=== PATIENT | female | born 1995 | race Hispanic/Latino ===

== ENCOUNTER 2017-03-31 08:18 | Emergency (ER) | payer OTHER ==
[2017-03-31 08:46] LABS: #Basophils 0.1 thou/uL (0.0-0.2); #Eosinphils 0.1 thou/uL (0.0-0.7); #Lymphocytes 3.8 thou/uL (1.20-3.40); #Monocytes 0.5 thou/uL (0.11-0.59); #Neutrophils 3.8 thou/uL (1.40-6.50); %Basophils 0.6 % (0.0-1.0); %Eosinophils 1.4 % (0.0-10.0); %Lymphocytes 46.4 % (21.0-51.0); %Monocytes 5.6 % (0.0-10.0); Hematocrit 39.8 % (36.0-47.0); Mean Platelet Volume 7.8 fL (7.4-10.4); Red Blood Cell (RBC) Count 4.46 mill/uL (4.20-5.40); White Blood Cell (WBC) Count 8.2 thou/uL (4.8-10.8)
--- NOTE | 2017-03-31 09:02 | RAD ---
FRONTAL VIEW CHEST: INDICATIONS: Dyspnea. FINDINGS: There is no consolidation, effusion, or pneumothorax. Leads overly the chest, limiting detail. IMPRESSION: No focal consolidation. POS: [facility]
[2017-03-31 09:07] LABS: ALT (SGPT) 25 U/L (8-55); AST (SGOT) 35 U/L (5-34); Alkaline Phosphatase 108 U/L (40-150); Anion Gap 20 mmol/L (10-20); BUN (Urea Nitrogen) 11 mg/dL (7.0-18.7); Bilirubin, Total 0.4 mg/dL (0.2-1.2); CK (CPK) 61 U/L (29-168); Calc. Creatinine Clearance 0 mL/min (70-130); Calcium 10.2 mg/dL (7.8-10.44); Carbon Dioxide 20 mmol/L (22-29); Chloride 104 mmol/L (98-107); Estimated GFR-MDRD 79; Globulin 3.6 g/dL (2.4-3.5); Magnesium 2.4 mg/dL (1.6-2.6); Protein, Total 8.3 g/dL (6.0-8.3)
[2017-03-31 09:11] LABS: Troponin I Less than 0.010 ng/mL (< 0.028)
--- NOTE | 2017-03-31 09:58 | CT ---
CTA CHEST WITH 3D VOLUME RENDERING: INDICATIONS: Dyspnea. FINDINGS: There is heterogeneity of the contrast bolus of the pulmonary arteries. This does limit sensitivity and could obscure underlying filling defects related to pulmonary emboli. No definite large centra l pulmonary embolus of the pulmonary trunk or main pulmonary arteries identified. There is added de nsity within the anterior mediastinum, likely residual thymic tissue. Moderate distention of the pa rtially visualized gallbladder. No consolidation, effusion, or pneumothorax. Marked heterogeneity o f the imaged portion of the spleen on the basis of the phase of enhancement, limiting assessment in this regard. No acute osseous pathology. The thoracic aorta demonstrates a normal caliber. IMPRESSION: 1. Technically limited exam for detection of pulmonary embolus, due to diffuse contrast heterogenei ty, although no definite large central pulmonary embolus is identified. 2. Additional details as described above. POS: [facility]
[2017-03-31] MEDS ORDERED: Ketorolac Tromethamine 30 MG/ML VIAL ONE (11:40)
--- NOTE | 2017-03-31 13:43 | ULT ---
GALLBLADDER ULTRASOUND: HISTORY: A 21-year-old female with right upper quadrant pain. FINDINGS: Numerous mobile shadowing gallstones without gallbladder wall thickening or pericholecystic fluid. The common bile duct is 0.8 cm without significant intrahepatic ductal dilatation. the visualized l iver, pancreas, and right kidney are unremarkable. IMPRESSION: 1. Multiple mobile shadowing gallstones. 2. Mildly dilated common bile duct at 0.8 cm without intrahepatic ductal dilatation. POS: [facility]
[2017-03-31] MEDS ORDERED: ISOVUE-370 76%-LOCM 1 ML ONE (13:48)
== END 2017-03-31 13:37 | disposition home or self-care (01) ==
LOC: ERS 08:18
DX: K80.50 Calculus of bile duct without cholangitis or cholecystitis without obstruction (principal)
CPT/HCPCS: 36415; 71010; 71275; 76705; 80053; 82550; 82553; 83690; 83735; 83880; 84484; 85025; 93005; 96361; 96374; J1885

== ENCOUNTER 2017-04-01 18:26 | Observation (INO) | payer OTHER ==
[2017-04-01 19:10] LABS: Hematocrit 38.2 % (36.0-47.0); Mean Platelet Volume 8.2 fL (7.4-10.4); Red Blood Cell (RBC) Count 4.14 mill/uL (4.20-5.40); White Blood Cell (WBC) Count 7.6 thou/uL (4.8-10.8)
[2017-04-01 19:13] LABS: Bilirubin Negative (Negative); Blood, Urine Trace (Negative); Glucose, Urine (Dipstick) Negative (Negative); Ketone, Urine Negative (Negative); Nitrite Negative (Negative); Protein, Urine (Dipstick) Negative (Neg-Trace); Urobilinogen 0.2 mg/dL (0.2-1.0)
[2017-04-01 19:14] LABS: Bacteria/HPF None Seen HPF (None Seen); Hyaline Casts/LPF 0-3 HYALINE CAST LPF (0-3 Hyaline); Squamous Epithelial 0-3 HPF (0-3)
[2017-04-01 19:24] LABS: Band 7 % (5-11); Neutrophil 55 % (42-75)
[2017-04-01] MEDS ORDERED: Morphine 2 MG/ML SYRINGE ONE (19:27)
[2017-04-01] MEDS ORDERED: Ondansetron HCl/PF 4 MG/2 ML Vial ONE (19:27)
[2017-04-01 19:58] LABS: ALT (SGPT) 180 U/L (8-55); AST (SGOT) 161 U/L (5-34); Alkaline Phosphatase 177 U/L (40-150); Anion Gap 13 mmol/L (10-20); BUN (Urea Nitrogen) 9 mg/dL (7.0-18.7); Calc. Creatinine Clearance 0 mL/min (70-130); Calcium 9.9 mg/dL (7.8-10.44); Carbon Dioxide 23 mmol/L (22-29); Chloride 106 mmol/L (98-107); Estimated GFR-MDRD 78; Lipase 59 U/L (8-78); Protein, Total 7.3 g/dL (6.0-8.3)
[2017-04-01] MEDS ORDERED: Levofloxacin 500 mg/D5W 100 ml Premix Bag ONE (20:43)
[2017-04-01] MEDS ORDERED: metroNIDAZOLE 500 MG/100 ML BAG ONE (20:48)
[2017-04-01] MEDS ORDERED: Ondansetron ODT 4 MG TAB SL PRN (21:39)
[2017-04-01] MEDS ORDERED: Sodium Chloride 0.9% 1,000 ML IV SCH (21:39)
[2017-04-01] MEDS ORDERED: Morphine 2 MG/ML SYRINGE SLOW IVP PRN (21:40)
[2017-04-01 21:55] VITALS: BMI 39.1
[2017-04-01] MEDS ORDERED: Acetaminophen 325 MG TAB PO PRN (23:10)
[2017-04-01] MEDS: Ondansetron HCl/PF 4 MG/2 ML Vial IVP PRN (23:17)
[2017-04-01] MEDS: Sodium Chloride 0.9% 1,000 ML IV SCH (23:20)
[2017-04-01] MEDS ORDERED: Piperacillin/Tazobactam 3.375 GM in Sodium Chloride 0.9% 100 ML IVPB SCH (23:59)
--- NOTE | 2017-04-02 00:37 | HP ---
CHIEF COMPLAINT: Abdominal pain. HISTORY: Ms. Garcia is a 21-year-old woman who gave 4 weeks ago. She presented to the [facility] room yesterday with right upper quadrant pain. She states the pain starts in the epigastrium , but then radiates around her right side all the way to her back. At that time, her LFTs and white count were normal and her pain was able to be controlled on medications, so she was discharged back home. However, after returning home, the pain returned and became more severe, so she returned to the emergency room, at that time her LFTs were discovered to be elevated within a bilirubin of 2. A ST and ALT of 161 and 180, alkaline phosphatase of 177. Lipase is normal at 59. The patient is cur rently comfortable. She states that when she was having severe pain, she also had multiple episodes of nausea and vomiting. Her emesis was non-bloody and non-coffee ground in appearance. The pain i s helped by pain medication. She has not had any fevers or chills, jaundice or icterus, no previous similar episodes before yesterday. The pain has not completely gone away since it began, but waxes and wanes in severity. REVIEW OF SYSTEMS: Ten-system review of systems is negative except per HPI and the following. The patient does also report some diarrhea. Her pain has been constant, but gets worse whenever she tri es to eat. PAST MEDICAL HISTORY: None. PAST SURGICAL HISTORY: None. FAMILY HISTORY: Diabetes and multiple family members with gallstones. SOCIAL HISTORY: She does not smoke, drink or use illicit drugs. She has a 4-week old baby who was born 3 weeks premature, but is doing well. She had a normal vaginal delivery and is . PHYSICAL EXAMINATION: VITAL SIGNS: The patient is afebrile, heart rate 91, respirations 18, blood pressure 110/95, 100% s aturated on room air. GENERAL: Reveals a healthy appearing young woman in no acute distress. She is not flushed or toxic in appearance. She is not jaundiced or icteric. HEENT: Unremarkable. NECK: Supple, without lymphadenopathy or thyroid nodules. HEART: Regular in its rate and rhythm without murmurs, rubs or gallops. LUNGS: Clear to auscultation bilaterally. ABDOMEN: Soft and nondistended. She is tender to palpation in the right upper quadrant and epigast rium, but does not exhibit rigidity, rebound, or guarding. She has no palpable masses or hernias. EXTREMITIES: Warm and well perfused. NEUROLOGIC: No focal deficits. PSYCHIATRIC: Alert, oriented, and appropriate. IMAGING: Imaging was performed yesterday during her first emergency room visit and this showed mult iple shadowing gallstones and a mildly dilated common bile duct at 0.[address] angio was negative fo r pulmonary embolism, although somewhat limited due to technical issues. ASSESSMENT: Cholelithiasis, possible choledocholithiasis and cholecystitis. The patient has had el evation diffusely in her LFTs since yesterday, although her lipase is normal and her white count is normal. She has been admitted to the hospital and placed on the OR schedule tomorrow tentatively fo r laparoscopic cholecystectomy with intraoperative cholangiogram. If her LFTs rise further and then Gastroenterology will be consulted for possible ERCP. The procedure of laparoscopic cholecystectom y was discussed in detail with patient and her family. These risks include but are not limited to b leeding, infection, risks of anesthesia, need for further procedures or for open surgery, damage to nearby structures including bowel, liver, and bile duct. She understands and accepts these risks an d wishes to proceed. Antibiotics have been ordered due to the possibility of bile duct obstruction.
[2017-04-02] MEDS: Piperacillin/Tazobactam 3.375 GM, Admixture Fee 1 EACH in Sodium Chloride 0.9% 100 ML IVPB SCH ×3 (00:41→12:33)
[2017-04-02 04:20] LABS: #Basophils 0.1 thou/uL (0.0-0.2); #Eosinphils 0.1 thou/uL (0.0-0.7); #Lymphocytes 2.2 thou/uL (1.20-3.40); #Monocytes 0.3 thou/uL (0.11-0.59); #Neutrophils 2.8 thou/uL (1.40-6.50); %Basophils 1.4 % (0.0-1.0); %Eosinophils 1.2 % (0.0-10.0); %Lymphocytes 40.1 % (21.0-51.0); %Monocytes 5.9 % (0.0-10.0); Hematocrit 34.4 % (36.0-47.0); Mean Platelet Volume 7.7 fL (7.4-10.4); Red Blood Cell (RBC) Count 3.75 mill/uL (4.20-5.40); White Blood Cell (WBC) Count 5.5 thou/uL (4.8-10.8)
[2017-04-02 04:34] LABS: ALT (SGPT) 144 U/L (8-55); AST (SGOT) 113 U/L (5-34); Alkaline Phosphatase 164 U/L (40-150); Anion Gap 10 mmol/L (10-20); BUN (Urea Nitrogen) 7 mg/dL (7.0-18.7); Bilirubin, Total 2.1 mg/dL (0.2-1.2); Calc. Creatinine Clearance 157 mL/min (70-130); Calcium 8.9 mg/dL (7.8-10.44); Carbon Dioxide 27 mmol/L (22-29); Chloride 106 mmol/L (98-107); Estimated GFR-MDRD 83; Globulin 2.5 g/dL (2.4-3.5); Lipase 24 U/L (8-78); Protein, Total 6.1 g/dL (6.0-8.3)
[2017-04-02] MEDS: Ondansetron HCl/PF 4 MG/2 ML Vial IVP PRN (05:39)
[2017-04-02] MEDS ORDERED: Lidocaine 1% PF 5 ML VIAL ONE (08:21)
[2017-04-02] MEDS ORDERED: Ondansetron HCl/PF 4 MG/2 ML Vial ONE ×2 (08:21→11:04)
[2017-04-02] MEDS ORDERED: Propofol 200 MG/20 ML VIAL ONE ×2 (08:21)
[2017-04-02] MEDS ORDERED: PHENYLEPHRINE-NS 100 MCG/ML 10 ML SYRINGE ONE ×2 (08:21)
[2017-04-02] MEDS ORDERED: Ketorolac Tromethamine 30 MG/ML VIAL ONE (08:21)
[2017-04-02] MEDS ORDERED: Lidocaine 2% w/Epinephrine 1:200K 20 ML VIAL ONE (08:43)
[2017-04-02] MEDS ORDERED: Bupivacaine 0.25% HCL 30 ML VIAL ONE (08:44)
[2017-04-02] MEDS ORDERED: Iothalamate Meglumine 60% 50 ML VIAL FS ONE ×2 (08:44→10:01)
[2017-04-02] MEDS ORDERED: Fentanyl 100 MCG/2 ML VIAL ONE (09:28)
[2017-04-02] MEDS ORDERED: Promethazine HCl 25 MG/ML VIAL IM PRN (10:57)
[2017-04-02] MEDS ORDERED: Ondansetron HCl/PF 4 MG/2 ML Vial IVP PRN (10:57)
[2017-04-02] MEDS ORDERED: Promethazine HCl 25 MG/ML VIAL SLOW IVP PRN (10:57)
--- NOTE | 2017-04-02 11:42 | RAD ---
ERCP XR: HISTORY: ERCP. Comparison: None. FINDINGS: There is adequate distention of the common bile duct. Cystic duct is clipped. Contrast is seen at the proximal small bowel. No filling defect is appreciated. IMPRESSION: No filling defects appreciated. POS: [facility]
--- NOTE | 2017-04-02 11:44 | RAD ---
XR CHOLANGIOGRAM IN SURGERY: HISTORY: Cholecystitis. COMPARISON: None. FINDINGS: Satisfactory appearance of the common bile duct and intrahepatic biliary system without filling defe ct. POS: [facility]
[2017-04-02] MEDS ORDERED: HYDROcodone/Acetaminophen 7.5/325 mg Tablet PO PRN ×2 (12:13)
[2017-04-02] MEDS ORDERED: Morphine 2 MG/ML SYRINGE SLOW IVP PRN (12:13)
[2017-04-02] MEDS: Sodium Chloride 0.9% 1,000 ML IV SCH (12:39)
[2017-04-02 15:29] VITALS: BP 111/63; TEMP 98.8
--- NOTE | 2017-04-02 17:23 | CON ---
DATE OF CONSULTATION: 04/02/2017 Never seen doctor, Dr. Leann Ely. REASON FOR CONSULTATION: Gallstones, common bile duct stones, abnormal liver function tests. HISTORY OF PRESENT ILLNESS: Cate Garcia is a 21-year-old Latin-Greek female who is 4 weeks p ostpartum. The patient presented to the ER with abdominal pain, nausea, and vomiting. She was foun d to have gallstones on sonogram and also she has elevated LFTs. The patient underwent laparoscopic cholecystectomy by Dr. Ely early this morning with intraoperative cholangiogram. The cholangio gram showed filling defect. I was asked to see the patient by Dr. Ely for ERCP and papillotomy and stone extraction. No relevant history. MEDICAL ILLNESSES: None. SURGERIES: None. FAMILY HISTORY: Diabetes and gallstones. SOCIAL HISTORY: The patient is . She does not drink or smoke. The patient is 4 weeks . System review is not obtainable as she is already under sedation. PHYSICAL EXAMINATION: GENERAL APPEARANCE: The patient is obese. She is sedated at the present time. VITAL SIGNS: Stable. Afebrile. Pulse is 74, blood pressure 110/63. CARDIAC: First and second heart sounds normal. LUNGS: Clear to auscultation. ABDOMEN: Soft to palpate. Abdomen is tender over the epigastric area. No rebound or guarding. IMAGING AND LABORATORY DATA: An abdominal sonogram shows gallstones. The laboratory data shows lucinda irubin of 2.1, AST of 113, ALT 114, alkaline phosphatase of 164, lipase 24, Chem-7 is normal. CBC i s actually normal. CLINICAL IMPRESSION: A 21-year-old Latin-Greek female, 4 weeks presented with gallsto mitch and also abnormal LFTs. She had a laparoscopic cholecystectomy this morning followed by a chola ngiogram. The cholangiogram showed multiple filling defects. The patient will undergo endoscopic r etrograde cholangiopancreatography as soon as possible.
--- NOTE | 2017-04-02 23:22 | OP ---
DATE OF PROCEDURE: 04/02/2017 SURGEON: Erica Betancourt M.D. OPERATIVE PROCEDURES: 1. Endoscopic retrograde cholangiopancreatography. 2. Endoscopic retrograde cholangiopancreatography with papillotomy. 3. Endoscopic retrograde cholangiopancreatography with balloon extraction of common bile duct stone . PREOPERATIVE DIAGNOSES: Gallstones, abnormal liver function tests, abnormal cholangiogram. POSTOPERATIVE DIAGNOSES: Common bile duct stones x4, status post papillotomy with stone extraction. PROCEDURE IN DETAIL: The patient already intubated and was on the fluoroscopy table. A bite block was placed. A [facility] video duodenoscope under direct vision was passed down the oropharynx, past th e GE junction, and rapidly advanced into the descending duodenum. The papilla was identified. The papilla was selectively cannulated with a guidewire into the common bile duct. Upon injection of co ntrast, the duct does not appear to be dilated, but does show a filling defect. A generous papillot lizzie was made at the 12 o'clock position using the papillotome. Following the papillotomy, there was brisk drainage of bile and at least 2-3 small stones came out. balloon size 9-12 mm. over the guidewire into the bile duct. The duct was swept several times with extraction of three s tones. The stones were actually small, probably about 8-9 mm. Following the papillotomy and balloo n sweep, there was proper emptying of the gallbladder. The stomach was decompressed and the scope r emoved.
--- NOTE | 2017-04-06 16:35 | PDOC.OP ---
Operative Note - Operative Note Operative Note: PROCEDURE: Laparoscopic cholecystectomy with intraoperative cholangiogram SURGEON: Leann Ely M.D. DATE OF PROCEDURE: 04/02/2017 PREOPERATIVE DIAGNOSIS: Cholelithiasis and cholecystitis, possible choledocholithiasis: POSTOPERATIVE DIAGNOSIS: Cholelithiasis and cholecystitis HISTORY: Patient is a 21-year-old woman who is recently . She presented with biliary colic symptoms and elevated LFTs and a dilated common bile duct. After discussion with gastroenterology, recommendation was made to proceed with laparoscopic cholecystectomy and intraoperative cholangiogram, with plans to proceed to immediate postoperative ERCP if the cholangiogram is abnormal. FINDINGS: Distended gallbladder with distal common bile duct obstruction. PROCEDURE IN DETAIL: After informed consent was obtained and appropriate preoperative antibiotics were administered, the patient was taken to the operating room and placed in the supine position and general endotracheal anesthesia was administered. The stomach was decompressed with an OG tube and the abdomen was prepped and draped in standard sterile fashion. Local anesthesia was infused to the skin and subcutaneous tissues at the umbilical level. A transverse skin incision was made. The fascia was elevated and a Veress needle was placed into the abdominal cavity without difficulty. Opening pressure was less than 5 and carbon dioxide gas easily insufflated to an intra- abdominal pressure of 15, which the patient tolerated well. The Veress needle was withdrawn and a [place] port advanced under direct vision. The abdominal cavity was carefully examined. There was no evidence of Veress needle or of trocar injury. Local anesthesia was infused to the skin and subcutaneous tissues at the epigastric, right upper quadrant, and right lateral abdominal sites and trocars were placed under direct vision of the laparoscope. The fundus of the gallbladder was grasped and retracted superiorly. The infundibulum was grasped and retracted laterally. The serosa was stripped inferiorly at the level of the neck of the gallbladder exposing the cystic duct and artery which were traced clearly to their insertion in the gallbladder. These were dissected free circumferentially and the cystic duct was clipped at the level of the neck of the gallbladder. The cystic artery was clipped but not divided. An incision was made in the cystic duct inferior to the clip and the cystic duct was palpated with no stones palpable. Clear bile was seen to flow from the cystic duct incision. A cholangiogram catheter was introduced and placed into the cystic duct and secured with a clip. A cholangiogram was obtained which showed an adequate length of cystic duct. There was normal filling of the proximal common bile duct but no flow of contrast into the duodenum. There was normal retrograde flow into the common hepatic duct beyond the level of the bifurcation without filling defects. Glucagon was administered and a second cholangiogram obtained with no improvement in the distal common bile duct obstruction. Gastroenterology was contacted and plans made for immediate postoperative ERCP. The cholangiogram catheter was removed and the cystic duct clipped below the incision in the cystic duct. The cystic duct was divided between these clips and the previously placed clip. The cystic artery was clipped and divided between the previously placed clips. The gallbladder was then dissected free of the gallbladder bed using hook electrocautery. Prior to complete removal of the gallbladder from the gallbladder bed, the area of the cystic duct and artery stumps was examined. The clips were in good position completely across these structures and there was no bleeding and no leakage of bile. The gallbladder was then placed into an EndoCatch bag and drawn out through the epigastric incision. The epigastric trocar was replaced and the operative site easily irrigated to clear. There was no significant bleeding or spillage of bile. The epigastric trocar was removed and the fascia closed under direct laparoscopic vision with a 0 Vicryl suture on a GraNee needle in a [id number] manner with excellent technical result. The right upper quadrant and right lateral abdominal trocars were removed and hemostasis verified. Carbon dioxide gas was allowed to desufflate through the umbilical trocar which was then removed. The skin incisions were closed with 4-0 subcuticular Monocryl sutures and Dermabond dressings were placed. The patient was taken to the endoscopy suite in good condition. There were no complications. ESTIMATED BLOOD LOSS: Minimal. SPECIMEN : Gallbladder and contents.
== END 2017-04-02 17:14 | disposition home or self-care (01) ==
LOC: ERS 18:26 → 2SW 21:37
PROVIDERS: ADMIT Surgery; ATTEND Surgery
PROC: 0FT44ZZ Resection of Gallbladder, Percutaneous Endoscopic Approach (ICD-10-PCS; principal; 2017-04-02)
PROC: BF031ZZ Plain Radiography of Gallbladder and Bile Ducts using Low Osmolar Contrast (ICD-10-PCS; 2017-04-02)
DX: K80.10 Calculus of gallbladder with chronic cholecystitis without obstruction (principal)
CPT/HCPCS: 36415; 47532; 74330; 80053; 81003; 81015; 83690; 85025; 88304; 96361; 96365; 96366; 96367; 96375; 96376; G0378; J1610; J1885; J1956; J2001; J2270; J2405; J2543; J2704; J3010; J7050; Q9961; S0020

== ENCOUNTER 2017-05-06 23:08 | Emergency (ER) | payer OTHER ==
[2017-05-06 23:44] LABS: Bilirubin Negative (Negative); Blood, Urine Negative (Negative); Glucose, Urine (Dipstick) Negative (Negative); Ketone, Urine Negative (Negative); Nitrite Negative (Negative); Protein, Urine (Dipstick) Negative (Neg-Trace); Urobilinogen 0.2 mg/dL (0.2-1.0)
[2017-05-06 23:46] LABS: Bacteria/HPF None Seen HPF (None Seen); Hyaline Casts/LPF 0-3 HYALINE CAST LPF (0-3 Hyaline); Squamous Epithelial 0-3 HPF (0-3); WBC/HPF 21-50 HPF (0-3)
[2017-05-06 23:46] LABS: #Eosinphils 0.1 thou/uL (0.0-0.7); #Lymphocytes 4.4 thou/uL (1.20-3.40); #Monocytes 0.6 thou/uL (0.11-0.59); #Neutrophils 4.2 thou/uL (1.40-6.50); %Basophils 0.5 % (0.0-1.0); %Eosinophils 1.6 % (0.0-10.0); %Lymphocytes 46.9 % (21.0-51.0); %Monocytes 6.4 % (0.0-10.0); Hematocrit 37.4 % (36.0-47.0); Mean Platelet Volume 7.5 fL (7.4-10.4); Red Blood Cell (RBC) Count 4.22 mill/uL (4.20-5.40); White Blood Cell (WBC) Count 9.5 thou/uL (4.8-10.8)
[2017-05-07 00:22] LABS: ALT (SGPT) 34 U/L (8-55); AST (SGOT) 24 U/L (5-34); Alkaline Phosphatase 125 U/L (40-150); Anion Gap 14 mmol/L (10-20); BUN (Urea Nitrogen) 13 mg/dL (7.0-18.7); Bilirubin, Total 0.2 mg/dL (0.2-1.2); Calc. Creatinine Clearance 0 mL/min (70-130); Carbon Dioxide 26 mmol/L (22-29); Chloride 103 mmol/L (98-107); Estimated GFR-MDRD 83; Globulin 3.4 g/dL (2.4-3.5)
== END 2017-05-07 01:32 | disposition home or self-care (01) ==
LOC: ERS 23:08
DX: R10.13 Epigastric pain (principal); N39.0 Urinary tract infection, site not specified; F41.9 Anxiety disorder, unspecified
CPT/HCPCS: 36415; 80053; 81003; 81015; 81025; 85025; 99284

== ENCOUNTER 2017-12-01 22:04 | Emergency (ER) | payer OTHER, SELFPAY ==
[2017-12-01 22:27] LABS: Bilirubin Small (Negative); Blood, Urine Negative (Negative); Clarity CLOUDY (Clear); Glucose, Urine (Dipstick) Negative (Negative); Leukocyte Negative (Negative); Nitrite Negative (Negative); Pregnancy Test - Urine (BHCG) Negative (Negative); Pregu Control Background? CLEAR/WHITE (CLR/WHITE); Pregu Control Bar Appear? YES (CONTROL BAR); Protein, Urine (Dipstick) 30 mg/dL (Neg-Trace); Urobilinogen 0.2 mg/dL (0.2-1.0); pH, Urine 5.5 (5.0-9.0)
[2017-12-01 22:28] LABS: Bacteria/HPF None Seen HPF (None Seen); Hyaline Casts/LPF 7-10 HYALINE CAST LPF (0-3 Hyaline); Pathc Cast-AUWi Flag 0.72 (0-2.49)
[2017-12-01 22:29] LABS: #Basophils 0.1 thou/uL (0.0-0.2); #Monocytes 0.7 thou/uL (0.11-0.59); #Neutrophils 8.4 thou/uL (1.40-6.50); %Basophils 0.7 % (0.0-1.0); %Eosinophils 0.3 % (0.0-10.0); %Lymphocytes 17.6 % (21.0-51.0); %Monocytes 6.3 % (0.0-10.0); %Neutrophils 75.1 % (42.0-75.0); Hemoglobin 15.2 g/dL (12.0-16.0); Mean Corpuscular HGB CONC 34.6 g/dL (32.0-36.0); Mean Corpuscular Hemoglobin 29.7 pg (27.0-31.0); Mean Corpuscular Volume 85.9 fL (78.0-98.0); Mean Platelet Volume 7.6 fL (7.4-10.4); Platelet Count 285 thou/uL (130-400); RBC Distribution Width 12.3 % (11.5-14.5); Red Blood Cell (RBC) Count 5.13 mill/uL (4.20-5.40); White Blood Cell (WBC) Count 11.2 thou/uL (4.8-10.8)
[2017-12-01 22:29] LABS: RBC/HPF 0-3 HPF (0-3)
[2017-12-01] MEDS ORDERED: Ondansetron ODT 4 MG TAB ONE (22:38)
[2017-12-01 22:51] LABS: ALT (SGPT) 24 U/L (8-55); AST (SGOT) 20 U/L (5-34); Albumin 5.1 g/dL (3.5-5.0); Alkaline Phosphatase 113 U/L (40-150); Anion Gap 18 mmol/L (10-20); BUN (Urea Nitrogen) 15 mg/dL (7.0-18.7); Bilirubin, Total 0.5 mg/dL (0.2-1.2); Calc. Creatinine Clearance 0 mL/min (70-130); Calcium 10.3 mg/dL (7.8-10.44); Carbon Dioxide 23 mmol/L (22-29); Chloride 103 mmol/L (98-107); Estimated GFR-MDRD 81; Globulin 3.8 g/dL (2.4-3.5); Glucose 94 mg/dL (70-105); Lipase 23 U/L (8-78); Potassium 3.8 mmol/L (3.5-5.1); Protein, Total 8.9 g/dL (6.0-8.3); Sodium 140 mmol/L (136-145)
== END 2017-12-01 23:37 | disposition home or self-care (01) ==
LOC: ERS 22:04
DX: A08.4 Viral intestinal infection, unspecified (principal); F41.9 Anxiety disorder, unspecified
CPT/HCPCS: 36415; 80053; 81003; 81015; 81025; 83690; 85025; 87086; 96360; Q0162

== ENCOUNTER 2018-06-08 22:12 | Emergency (ER) | payer BC, SELFPAY ==
[2018-06-08 23:00] LABS: #Basophils 0.1 thou/uL (0.0-0.2); #Eosinphils 0.1 thou/uL (0.0-0.7); #Lymphocytes 3.9 thou/uL (1.20-3.40); #Monocytes 0.5 thou/uL (0.11-0.59); #Neutrophils 5.1 thou/uL (1.40-6.50); %Basophils 1.1 % (0.0-1.0); %Eosinophils 1.5 % (0.0-10.0); %Lymphocytes 40.2 % (21.0-51.0); %Monocytes 5.5 % (0.0-10.0); %Neutrophils 51.7 % (42.0-75.0); Hemoglobin 14.3 g/dL (12.0-16.0); Mean Corpuscular HGB CONC 34.8 g/dL (32.0-36.0); Mean Platelet Volume 8.2 fL (7.4-10.4); Platelet Count 282 thou/uL (130-400); RBC Distribution Width 12.1 % (11.5-14.5); Red Blood Cell (RBC) Count 4.61 mill/uL (4.20-5.40); White Blood Cell (WBC) Count 9.8 thou/uL (4.8-10.8)
== END 2018-06-09 00:25 | disposition home or self-care (01) ==
LOC: ERS 22:12
DX: O99.89 Other specified diseases and conditions complicating pregnancy, childbirth and the puerperium (principal); N94.6 Dysmenorrhea, unspecified; O99.345 Other mental disorders complicating the puerperium; F41.9 Anxiety disorder, unspecified
CPT/HCPCS: 36415; 84702; 85025; 86850; 86900; 86901; 99284

== ENCOUNTER 2018-08-29 15:02 | Emergency (ER) | payer MEDICAID, SELFPAY ==
[2018-08-29 16:16] LABS: #Basophils 0.1 thou/uL (0.0-0.2); #Eosinphils 0.1 thou/uL (0.0-0.7); #Lymphocytes 3.5 thou/uL (1.20-3.40); #Monocytes 0.6 thou/uL (0.11-0.59); #Neutrophils 4.8 thou/uL (1.40-6.50); %Basophils 1.1 % (0.0-1.0); %Eosinophils 0.8 % (0.0-10.0); %Lymphocytes 38.7 % (21.0-51.0); %Monocytes 6.8 % (0.0-10.0); %Neutrophils 52.6 % (42.0-75.0); Mean Corpuscular HGB CONC 33.3 g/dL (32.0-36.0); Mean Corpuscular Hemoglobin 29.9 pg (27.0-31.0); Mean Corpuscular Volume 89.8 fL (78.0-98.0); Mean Platelet Volume 8.1 fL (7.4-10.4); Platelet Count 290 thou/uL (130-400); RBC Distribution Width 11.6 % (11.5-14.5); Red Blood Cell (RBC) Count 4.69 mill/uL (4.20-5.40); White Blood Cell (WBC) Count 9.1 thou/uL (4.8-10.8)
[2018-08-29 16:34] LABS: ALT (SGPT) 21 U/L (8-55); AST (SGOT) 16 U/L (5-34); Albumin 4.5 g/dL (3.5-5.0); Alkaline Phosphatase 77 U/L (40-150); Anion Gap 12 mmol/L (10-20); BUN (Urea Nitrogen) 13 mg/dL (7.0-18.7); Bilirubin, Total 0.3 mg/dL (0.2-1.2); Calc. Creatinine Clearance 0 mL/min (70-130); Calcium 9.6 mg/dL (7.8-10.44); Carbon Dioxide 25 mmol/L (22-29); Chloride 105 mmol/L (98-107); Estimated GFR-MDRD 86; Glucose 83 mg/dL (70-105); Potassium 3.7 mmol/L (3.5-5.1); Protein, Total 7.5 g/dL (6.0-8.3); Sodium 138 mmol/L (136-145)
[2018-08-29 16:49] LABS: Bilirubin Negative (Negative); Blood, Urine Negative (Negative); Clarity CLEAR (Clear); Glucose, Urine (Dipstick) Negative (Negative); Leukocyte Negative (Negative); Nitrite Negative (Negative); Protein, Urine (Dipstick) Negative (Neg-Trace); Specific Gravity, Urine 1.023 (1.002-1.036)
[2018-08-29 16:53] LABS: Pregnancy Test - Urine (BHCG) POSITIVE (Negative); Pregu Control Background? CLEAR/WHITE (CLR/WHITE); Pregu Control Bar Appear? YES (CONTROL BAR); Specific Gravity 1.023 (1.002-1.036)
--- NOTE | 2018-08-29 17:54 | ULT ---
PELVIC ULTRASOUND 08/29/18 HISTORY: Back pain, pelvic pain. Evaluate for ectopic . Multiple longitudinal and transverse images of the pelvis is obtained using a multihertz curvilinear transabdominal as well as endovaginal transducers. Real time, color flow and spectral waveform dopple r analysis demonstrates an anteverted uterus. The uterus measures 8.2 x 3.5 x 4.9 cm. There is some endometrial thickening seen. Endometrium has do uble wall thickness of approximately 3. 5 cm. Both ovaries were visualized and demonstrate good blood flow. Right ovary measures 2.6 x 1.8 x 2.3 cm while the left ovary measures 2.7 x 2.5 x 2.4 cm. No evidence of free pelvic fluid seen. No definite evidence of pole seen. IMPRESSION: Endometrial thickening. No evidence of viable intrauterine seen. POS: [facility]
== END 2018-08-29 18:15 | disposition home or self-care (01) ==
LOC: ERS 15:02
DX: O20.0 Threatened abortion (principal); O99.341 Other mental disorders complicating pregnancy, first trimester; F41.9 Anxiety disorder, unspecified; Z3A.01 Less than 8 weeks gestation of pregnancy
CPT/HCPCS: 36415; 76856; 80053; 81003; 81025; 84702; 85025; 86900; 86901

== ENCOUNTER 2018-09-15 20:19 | Emergency (ER) | payer OTHER ==
[2018-09-15 22:08] LABS: #Basophils 0.1 thou/uL (0.0-0.2); #Eosinphils 0.1 thou/uL (0.0-0.7); #Lymphocytes 3.2 thou/uL (1.20-3.40); #Monocytes 0.5 thou/uL (0.11-0.59); #Neutrophils 4.2 thou/uL (1.40-6.50); %Basophils 1.1 % (0.0-1.0); %Eosinophils 0.8 % (0.0-10.0); %Lymphocytes 40.2 % (21.0-51.0); %Monocytes 5.6 % (0.0-10.0); %Neutrophils 52.3 % (42.0-75.0); Hemoglobin 14.1 g/dL (12.0-16.0); Mean Corpuscular HGB CONC 32.5 g/dL (32.0-36.0); Mean Corpuscular Hemoglobin 29.5 pg (27.0-31.0); Mean Corpuscular Volume 90.7 fL (78.0-98.0); Mean Platelet Volume 8.4 fL (7.4-10.4); Platelet Count 265 thou/uL (130-400); Red Blood Cell (RBC) Count 4.77 mill/uL (4.20-5.40)
--- NOTE | 2018-09-15 23:34 | ULT ---
FPelvic ultrasound, transvaginal, with grayscale and Doppler color flow Clinical history: Vaginal bleeding with positive hCG FINDINGS: There is no evidence of an intrauterine gestation. There is prominence of the endometrium a t 1.3 cm. Comparing to recent ultrasound of the pelvis dated August 29, 2018, there has been interval decrease i n thickness of the endometrium, from 2.2 cm on prior exam. Doppler imaging of the ovaries reveals kenji w, bilaterally, with vascular waveforms elicited. No free pelvic fluid. IMPRESSION: No evidence of an intrauterine gestation, and therefore ectopic cannot be excluded on the b asis of this exam. Recommend serial beta hCG follow-up and continued imaging follow-up may also be ob tained. Interval decrease in thickness of the endometrium, as discussed above.
[2018-09-15] MEDS ORDERED: HYDROcodone/Acetaminophen 5/325 mg Tablet ONE (23:46)
== END 2018-09-15 23:53 | disposition home or self-care (01) ==
LOC: ERS 20:19 → L&D/OP 20:19 → ERS 20:19 → EDSTATUS 20:42 → ERS 23:53
DX: O03.4 Incomplete spontaneous abortion without complication (principal); F41.9 Anxiety disorder, unspecified
CPT/HCPCS: 36415; 76856; 84702; 85025; 86900; 86901

== ENCOUNTER 2019-01-04 22:26 | Emergency (ER) | payer OTHER ==
[2019-01-04 23:21] LABS: #Basophils 0.1 thou/uL (0.0-0.2); #Eosinphils 0.1 thou/uL (0.0-0.7); #Lymphocytes 3.6 thou/uL (1.20-3.40); #Monocytes 0.5 thou/uL (0.11-0.59); #Neutrophils 3.8 thou/uL (1.40-6.50); %Basophils 0.7 % (0.0-1.0); %Eosinophils 1.4 % (0.0-10.0); %Lymphocytes 44.2 % (21.0-51.0); %Monocytes 6.6 % (0.0-10.0); %Neutrophils 46.9 % (42.0-75.0); Hemoglobin 14.6 g/dL (12.0-16.0); Mean Corpuscular HGB CONC 35.2 g/dL (32.0-36.0); Mean Corpuscular Hemoglobin 31.6 pg (27.0-31.0); Mean Corpuscular Volume 89.6 fL (78.0-98.0); Mean Platelet Volume 9.1 fL (7.4-10.4); Platelet Count 235 thou/uL (130-400); Pregnancy Test - Urine (BHCG) POSITIVE (Negative); Pregu Control Background? CLEAR/WHITE (CLR/WHITE); Pregu Control Bar Appear? YES (CONTROL BAR); RBC Distribution Width 11.7 % (11.5-14.5); Red Blood Cell (RBC) Count 4.61 mill/uL (4.20-5.40); White Blood Cell (WBC) Count 8.1 thou/uL (4.8-10.8)
[2019-01-04 23:24] LABS: Bilirubin Negative (Negative); Blood, Urine Negative (Negative); Clarity Clear (Clear); Glucose, Urine (Dipstick) Normal (Negative); Leukocyte Negative Leu/uL (Negative); Nitrite Negative (Negative); Protein, Urine (Dipstick) Negative (Neg-Trace); Specific Gravity 1.012 (1.002-1.036); Urobilinogen Normal mg/dL (Less than 2)
[2019-01-04 23:46] LABS: ALT (SGPT) 17 U/L (8-55); AST (SGOT) 16 U/L (5-34); Albumin 4.7 g/dL (3.5-5.0); Alkaline Phosphatase 66 U/L (40-150); Anion Gap 15 mmol/L (10-20); BUN (Urea Nitrogen) 11 mg/dL (7.0-18.7); Bilirubin, Total 0.2 mg/dL (0.2-1.2); Calc. Creatinine Clearance 0 mL/min (70-130); Calcium 10.4 mg/dL (7.8-10.44); Carbon Dioxide 24 mmol/L (22-29); Chloride 105 mmol/L (98-107); Estimated GFR-MDRD Greater than 90; Glucose 100 mg/dL (70-105); Lipase 66 U/L (8-78); Potassium 3.7 mmol/L (3.5-5.1); Protein, Total 7.7 g/dL (6.0-8.3); Sodium 140 mmol/L (136-145)
--- NOTE | 2019-01-05 09:07 | ULT ---
PRELIMINARY REPORT/[facility]/EMERGENCY AFTER HOURS PROCEDURE: EXAM: US First Trimester, Transabdominal and US , Transvaginal US Duplex Artery and Vein of the Abdominal and/or Reproductive Organs. Complete Ovaries EXAM DATE/TIME: 01/04/2019 11:47 PM CLINICAL HISTORY: 23 years old, female; Pain; Other: Llq; Gestational age or lmp: 5wks by US, unsure of dates; TECHNIQUE: Imaging protocol: Real-time transabdominal obstetrical ultrasound of the maternal pelvis and a first trimester , less than 14 weeks 0 days, with image documentation. Transvaginal imaging was us ed for better evaluation of the fetus and adnexa. Real-time duplex ultrasound scan of the arterial and venous flow with color Doppler flow and spectral waveform analysis. Complete duplex exam focused on the ovaries. Duplex exam was added to evaluate for ovarian torsion or mass. COMPARISON: No relevant prior studies available. FINDINGS: Transabdominal ultrasound showed possible intrauterine gestational sac. Transvaginal ultrasound was p erformed for evaluation of yolk sac and pole. Duplex ultrasound scan with color Doppler flow an d spectral waveform analysis was also performed for evaluation of pelvic and ovarian blood flow and torsion. Gestation: There is an intrauterine fluid collection likely representing a gestational sac (MSD: 0.33cm-5w0d). Questionable yolk sac. No pole visualized. Uterus: Unremarkable. Cervix: Unremarkable. Right adnexa: Unremarkable. No mass. Normal duplex of the ovary. No evidence of torsion. Left adnexa: Unremarkable. No mass. Normal duplex of the ovary. No evidence of torsion. Intraperitoneal: No intraperitoneal free fluid. IMPRESSION: There is an intrauterine fluid collection likely representing a gestational sac with questionable yol k sac, although no pole visualized; recommend close followup with beta-hCG and ultrasound. Thank you for allowing us to participate in the care of your patient. Dictated and Authenticated by: Andrew Peña MD 01/05/2019 1:13 AM Central Time ([place] & [place]) FINAL REPORT EMERGENCY AFTER HOURS PELVIC ULTRASOUND: Date: 01/04/19 FINDINGS/IMPRESSION: I agree with the preliminary report provided by [facility]. Findings still are consistent with a of undetermined location. There is a fluid-filled sac within the intrauterine space which could reflect an early gestational sac or a pseudogestational sac from ectopic . No extrauterine mass is identified. No free fluid is seen. Continued follow- up is recommended. POS: [facility]
== END 2019-01-05 02:30 | disposition home or self-care (01) ==
LOC: ERS 22:26
DX: O20.0 Threatened abortion (principal); F41.9 Anxiety disorder, unspecified; O99.341 Other mental disorders complicating pregnancy, first trimester; Z3A.14 14 weeks gestation of pregnancy
CPT/HCPCS: 76856; 80053; 81003; 81025; 83690; 84702; 85025; 93005; 96360; 96361

== ENCOUNTER 2019-01-11 14:36 | Emergency (ER) | payer OTHER, SELFPAY ==
--- NOTE | 2019-01-11 16:52 | ULT ---
PELVIC ULTRASOUND: 01/11/19 COMPARISON: 01/04/19. HISTORY: Evaluate for ectopic . TECHNIQUE: Transabdominal and endovaginal imaging of the pelvis is performed. Ovaries are interrogated with martin scale, color flow, Doppler imaging with spectral waveform analysis. FINDINGS: The uterus is identified, measuring 7.8 x 4.1 x 5.3 cm. Within the endometrium is a gestational sac, yolk sac and pole. [place]-rump length is 1.03 cm corresponding to a gestational age of 7 weeks a nd 1 day. heart tones are not appreciated. Left ovary has a normal echotexture measuring 2.0 x 1.5 x 2.5 cm. Right ovary has a normal echotextur e, measuring 2.3 x 2.5 x 3.5 cm. There is no significant free fluid. OVARIAN DOPPLER: Vascular flow to bilateral ovaries. IMPRESSION: Single intrauterine gestation with gestational age by crown-rump length is 7 weeks and 1 day. Absent heart tones. Continued surveillance with serial beta HCG and short term follow-up ultrasound i s recommended. POS: [facility]
== END 2019-01-11 16:18 | disposition home or self-care (01) ==
LOC: ERS 14:36
DX: O20.0 Threatened abortion (principal); O99.342 Other mental disorders complicating pregnancy, second trimester; F41.9 Anxiety disorder, unspecified; Z3A.21 21 weeks gestation of pregnancy
CPT/HCPCS: 36415; 76856; 84702

== ENCOUNTER 2019-01-25 13:31 | Emergency (ER) | payer OTHER, SELFPAY ==
[2019-01-25] MEDS ORDERED: Ondansetron PF 4 MG/2 ML Vial ONE (14:34)
[2019-01-25 15:30] LABS: Bilirubin Negative (Negative); Blood, Urine Negative (Negative); Clarity Turbid (Clear); Glucose, Urine (Dipstick) Normal (Negative); Leukocyte 75 Leu/uL (Negative); Nitrite Negative (Negative); Protein, Urine (Dipstick) 50 mg/dL (Neg-Trace); Urobilinogen Normal mg/dL (Less than 2); WBC/HPF 0-3 HPF (0-3)
[2019-01-25 15:42] LABS: Bacteria/HPF 1+ HPF (None Seen)
== END 2019-01-25 16:18 | disposition home or self-care (01) ==
LOC: ERS 13:31
DX: O21.9 Vomiting of pregnancy, unspecified (principal); Z3A.01 Less than 8 weeks gestation of pregnancy
CPT/HCPCS: 81003; 81015; 87086; 96361; 96374; J2405

== ENCOUNTER 2019-04-01 21:07 | Emergency (ER) | payer OTHER, SELFPAY ==
[2019-04-01 21:41] LABS: Bilirubin Negative (Negative); Blood, Urine Negative (Negative); Clarity Clear (Clear); Glucose, Urine (Dipstick) Normal (Negative); Leukocyte Negative Leu/uL (Negative); Nitrite Negative (Negative); Protein, Urine (Dipstick) Negative (Neg-Trace); Urobilinogen Normal mg/dL (Less than 2)
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
== END 2019-04-01 22:55 | disposition home or self-care (01) ==
LOC: ERS 21:07
DX: O99.89 Other specified diseases and conditions complicating pregnancy, childbirth and the puerperium (principal); R10.30 Lower abdominal pain, unspecified; Z3A.18 18 weeks gestation of pregnancy
CPT/HCPCS: 76815; 81003

== ENCOUNTER 2019-07-15 13:28 | Day surgery (SDC) | payer SELFPAY ==
[2019-07-15 13:57] VITALS: BMI 38.0
[2019-07-15] MEDS ORDERED: hydrALAZINE 20 MG/ML VIAL SLOW IVP PRN (14:07)
--- NOTE | 2019-07-15 14:32 | PDOC.LDHP ---
Labor and Delivery H&P Chief complaint: other (fast heart rate) HPI: 23 y/o at 32w3d, patient of Dr. Alford, sent over for elevated heart rate. She reports that for the last week, her heart rate has been high when she stands and she has shortness of breath with activity. Only other complaint is numbness and tingling in all extremities. Denies VB, LOF, ctx, or decreased FM. ROS neg for HEENT, cv, pulm, gi ,gu, neuro, psych, skin, musculoskeletal or constitutional symptoms other than mentioned above. OB History Details: 1 term VAVD, complicated by PreEclampsia 3 SABs Current complications: none Past Medical History: None Current medications: pre- vitamins Previous surgical history: cholecystectomy Allergies/Adverse Reactions: Allergies Allergy/AdvReac Type Severity Reaction Status Date / Time No Known Drug Allergies Allergy Verified 07/15/19 13:56 Social history: none - Physical Exam Vital signs reviewed and normal: yes Abnormal vital signs: tachycardia when standing (120s) and walking (140s), down to 100s at rest General: NAD Lungs: nonlabored breathing Abdomen: gravid Extremeties: no edema FHT: category 1 (140s, mod variability, +accels, no decels) [place] contractions every: occasional - Assessment 23 y/o at 32w3d with normal BPs, normal EKG, echo with no acute process. EF 60-65%, mild pulmonic and tricuspid regurgitation, otherwise normal echo. O2 saturations 98-100%. Mild anemia with hgb of 10.3. status reassuring with reactive NST. - Plan -: Consider further evaluation on outpatient basis. D/c home with precautions. Advised to follow up with Dr. Alford next week or as scheduled. Advised to start iron daily.
[2019-07-15 14:39] LABS: #Basophils 0.1 thou/uL (0.0-0.2); #Eosinphils 0.1 thou/uL (0.0-0.7); #Lymphocytes 2.8 thou/uL (1.20-3.40); #Monocytes 0.7 thou/uL (0.11-0.59); #Neutrophils 6.1 thou/uL (1.40-6.50); %Basophils 1.2 % (0.0-1.0); %Eosinophils 1.4 % (0.0-10.0); %Lymphocytes 28.6 % (21.0-51.0); %Monocytes 7.1 % (0.0-10.0); %Neutrophils 61.8 % (42.0-75.0); Hemoglobin 10.3 g/dL (12.0-16.0); Mean Corpuscular HGB CONC 35.8 g/dL (32.0-36.0); Mean Corpuscular Hemoglobin 31.6 pg (27.0-31.0); Mean Corpuscular Volume 88.4 fL (78.0-98.0); Mean Platelet Volume 8.1 fL (7.4-10.4); Platelet Count 236 thou/uL (130-400); Red Blood Cell (RBC) Count 3.24 mill/uL (4.20-5.40); White Blood Cell (WBC) Count 9.9 thou/uL (4.8-10.8)
--- NOTE | 2019-07-16 06:59 | PDOC.BPN ---
- Brief Progress Note Late Addendum: Exam Heart: Regular rhythm, tachycardia in 100s Lungs: CTAB, no wheezes, rales, or rhonchi EKG: Sinus tachycardia Echo: EF 60-65%, no significant findings Patient observed walking - had increased heart rate but able to speak clearly while walking at a normal pace without appearing distressed.
[2019-07-16] MEDS ORDERED: FLU VACC QS2019-20(6MOS UP)/PF 60 MCG/0.5 ML SYRINGE IM ONE (14:30)
== END 2019-07-15 17:00 | disposition home health service (06) ==
LOC: L&D/OP 13:28
PROVIDERS: ATTEND Obstetrics & Gynecology
DX: O99.89 Other specified diseases and conditions complicating pregnancy, childbirth and the puerperium (principal); R00.0 Tachycardia, unspecified; R06.02 Shortness of breath; Z3A.32 32 weeks gestation of pregnancy
CPT/HCPCS: 36415; 85025; 93005; 93010; 93306; 99283

== ENCOUNTER 2019-08-14 12:01 | Day surgery (SDC) | payer SELFPAY ==
[2019-08-14 12:32] VITALS: BMI 38.0
[2019-08-14] MEDS ORDERED: hydrALAZINE 20 MG/ML VIAL SLOW IVP PRN (13:11)
--- NOTE | 2019-08-14 23:54 | PRG ---
DATE OF SERVICE: 08/14/2019 PRIMARY OB: Sanjeev Alford MD CHIEF COMPLAINT: Some spotting. HISTORY OF PRESENT ILLNESS: The patient is a 24-year-old female with an intrauterine at 36 weeks and 5 days presenting with some spotting that has been occurring today. Earlier in the day, she first noticed that when she wiped, she had some light pink on her toilet paper that became a little bit darker and was counseled to come here for evaluation. The patient reports she has been losing her mucus plug for the last several days. She denies any leakage of fluid or otherwise change in discharge. She also denies active labor at this time. The patient did have intercourse last night. She denies any illness, fever, fall, headache, chest pain, or shortness of breath. She has had some nausea and vomiting once today and reports occasional constipation. Denies diarrhea. Denies hip problems, knee problems, or muscle weakness. Again, denies leakage of fluid, urinary urgency or frequency. ALLERGIES: NO KNOWN DRUG ALLERGIES. SOCIAL HISTORY: Denies drug, alcohol, or tobacco use. MEDICATIONS: vitamins. PAST MEDICAL HISTORY: Tachycardia. OB LABS: Unavailable at the time of dictation. REVIEW OF SYSTEMS: Per HPI. PHYSICAL EXAMINATION: VITAL SIGNS: Blood pressure is 133/77, heart rate of 97, respiratory rate of 18, saturating 98% on room air. GENERAL: She appears to be in no acute distress. She is alert and oriented, cooperative, and pleasant to interact with. HEAD: Normocephalic and atraumatic. LUNGS: Clear to auscultation bilaterally. HEART: Regular rate and rhythm. ABDOMEN: Gravid, soft, nontender. EXTREMITIES: Nontender, nonedematous. Cervical exam per nursing staff. She is 260 and -3 station, unchanged after 2 hours and reports a week or two ago with Dr. Alford. heart tracing shows the fetus with a baseline in the 120s with moderate long-term variability, positive 15 x 15 accelerations, no decelerations. ASSESSMENT AND PLAN: The patient is a 24-year-old with an intrauterine at 36 weeks and 5 days, who has presented with some isolated spotting that seems to be resolving as the patient has not experienced any here. She has been given reassurance as this may be evidence of some cervical change in preparation for labor as she is beginning to lose her mucus plug and has 2 cm dilated. The patient is being discharged to home with fetus, the category 1 tracing and reactive NST and labor precautions. She has an appointment next week on Monday or Monday that she has been encouraged to keep. Job ID: [id number]
== END 2019-08-14 14:51 | disposition home or self-care (01) ==
LOC: L&D/OP 12:01
PROVIDERS: ATTEND Obstetrics & Gynecology
DX: O26.853 Spotting complicating pregnancy, third trimester (principal); Z3A.36 36 weeks gestation of pregnancy
CPT/HCPCS: 99283

== ENCOUNTER 2019-09-03 05:30 | Inpatient (IN) | payer OTHER ==
[2019-09-03 10:28] VITALS: BMI 38.4
[2019-09-03] MEDS: Lactated Ringer's 1,000 ML IV SCH ×2 (10:30→12:00)
[2019-09-03] MEDS ORDERED: Acetaminophen 500 MG TAB PO PRN (10:48)
[2019-09-03] MEDS ORDERED: Ondansetron PF 4 MG/2 ML Vial IVP PRN ×2 (10:48→18:13)
[2019-09-03] MEDS ORDERED: Carboprost 250 MCG/ML AMP IM PRN (10:48)
[2019-09-03] MEDS ORDERED: Methylergonovine 0.2 MG/ML VIAL IM PRN ×2 (10:48→18:13)
[2019-09-03] MEDS ORDERED: Promethazine HCl 25 MG/ML VIAL IM PRN ×2 (10:48→18:13)
[2019-09-03] MEDS ORDERED: hydrALAZINE 20 MG/ML VIAL SLOW IVP PRN ×2 (10:48→18:13)
[2019-09-03] MEDS ORDERED: Ibuprofen 800 MG TAB PO PRN (10:48)
[2019-09-03] MEDS ORDERED: Misoprostol 200 MCG TAB PR PRN (10:48)
[2019-09-03] MEDS ORDERED: Docusate 100 MG CAP PO PRN (10:48)
[2019-09-03] MEDS ORDERED: Butorphanol Tartrate 1 MG/ML VIAL SLOW IVP PRN (10:48)
[2019-09-03] MEDS ORDERED: Diphenoxylate HCl/Atropine Tablet PO PRN ×2 (10:48)
[2019-09-03] MEDS ORDERED: Lidocaine 1% (PF) 30 ML VIAL SC PRN (10:48)
[2019-09-03] MEDS ORDERED: HYDROcodone/Acetaminophen 5/325 mg Tablet PO PRN ×4 (10:48→18:13)
[2019-09-03] MEDS ORDERED: NS w/ Oxytocin 10 units 500 ML ONE (10:53)
[2019-09-03] MEDS ORDERED: NS w/ Oxytocin 10 units 500 ML IV SCH ×2 (11:00)
[2019-09-03 11:05] LABS: Hemoglobin 10.9 g/dL (12.0-16.0); Mean Corpuscular HGB CONC 34.5 g/dL (32.0-36.0); Mean Corpuscular Hemoglobin 29.3 pg (27.0-31.0); Mean Platelet Volume 9.7 fL (7.4-10.4); Platelet Count 224 thou/uL (130-400); RBC Distribution Width 12.3 % (11.5-14.5); Red Blood Cell (RBC) Count 3.71 mill/uL (4.20-5.40); White Blood Cell (WBC) Count 7.8 thou/uL (4.8-10.8)
[2019-09-03 11:51] LABS: HBSAg Index 0.17 S/CO (0-0.99); Hep B Surf Ag Non-Reactive S/CO (NonReactive)
[2019-09-03 11:52] LABS: Syphilis Antibody Nonreactive (Nonreactive); Syphilis Antibody Index 0.03 S/CO (<1.00 Non-Reactive)
[2019-09-03] MEDS: NS / Oxytocin 40 units/1000ml 1,000 ML IV PRN ×2 (16:15→17:24)
[2019-09-03] MEDS ORDERED: Measles/Mumps/Rubella 10 MCG/0.5 ML VIAL SC ONE (18:13)
[2019-09-03] MEDS ORDERED: Preparation H Ointment 28 GM TUBE PR PRN (18:13)
[2019-09-03] MEDS ORDERED: Adacel (T-DAP) 0.5 ML SYRINGE IM ONE (18:13)
[2019-09-03] MEDS ORDERED: Bisacodyl 10 MG SUPP PR PRN (18:13)
[2019-09-03] MEDS ORDERED: Misoprostol 200 MCG TAB VAG PRN (18:13)
[2019-09-03] MEDS ORDERED: Zolpidem Tartrate 5 MG TAB PO PRN (18:13)
[2019-09-03] MEDS ORDERED: Lanolin Ointment 7 GM TUBE TOP PRN (18:13)
[2019-09-03] MEDS ORDERED: Milk Of Magnesia 30 ML UDCUP PO PRN (18:13)
[2019-09-03] MEDS ORDERED: Benzocaine-Menthol 82.5 ML CAN TOP PRN (18:13)
[2019-09-03] MEDS ORDERED: Varicella virus, LIVE 0.5 ML VIAL SC ONE (18:13)
[2019-09-03] MEDS ORDERED: diphenhydrAMINE 25 MG CAP PO PRN (18:13)
[2019-09-03] MEDS ORDERED: NS / Oxytocin 40 units/1000ml 1,000 ML IV SCH (18:15)
[2019-09-03] MEDS ORDERED: Simethicone Chewable 80 MG TAB PO PRN (20:51)
[2019-09-03] MEDS: Docusate Calcium (SURFAK) 240 MG CAP PO SCH (21:04)
[2019-09-04] MEDS: Ibuprofen 800 MG TAB PO SCH ×3 (00:46→17:13)
[2019-09-04 05:34] LABS: Hemoglobin 10.1 g/dL (12.0-16.0); Mean Corpuscular Hemoglobin 29.3 pg (27.0-31.0); Mean Corpuscular Volume 86.1 fL (78.0-98.0); Mean Platelet Volume 9.4 fL (7.4-10.4); Platelet Count 201 thou/uL (130-400); RBC Distribution Width 12.3 % (11.5-14.5); Red Blood Cell (RBC) Count 3.44 mill/uL (4.20-5.40); White Blood Cell (WBC) Count 11.2 thou/uL (4.8-10.8)
[2019-09-04] MEDS: Ferrous Sulfate 325 MG TAB PO SCH ×2 (09:00→17:17)
[2019-09-04] MEDS ORDERED: Prenatal Vitamin 1 TAB PO SCH (09:00)
[2019-09-04] MEDS: Docusate Calcium (SURFAK) 240 MG CAP PO SCH (09:03)
[2019-09-04 17:10] VITALS: BP 124/83; TEMP 98
--- NOTE | 2019-09-04 18:24 | PDOC.PP ---
Post Progress Note Post Day #: 1 PO intake tolerated: yes Flatus: yes Ambulation: yes Vital Signs (12 hours) Temp Pulse Resp BP Pulse Ox 09/04/19 17:09 98.0 F 96 16 124/83 09/04/19 11:26 98.2 F 77 20 107/61 09/04/19 08:50 97 09/04/19 07:30 98.4 F 80 20 102/56 L 97 Weight Weight 210 lb - Physical Examination General: NAD Cardiovascular: no m/r/g, RRR Respiratory: clear to auscultation bilaterally, non-labored breathing Abdominal: + bowel sounds, lochia, no distention, appropriately TTP Extremities: negative homans (B) Skin: CS incision dry & intact, no rash Neurological: no gross focal deficits Psychiatric: A&Ox3, normal affect Result Diagrams: 09/04/19 05:23 Additional Labs: Post Labs Blood Type AB POSITIVE 09/03/19 10:56 Hep Bs Antigen Non-Reactive S/CO (NonReactive) 09/03/19 10:56
--- NOTE | 2019-09-04 18:47 | DN ---
DATE OF PROCEDURE: 09/03/2019 TIME OF SERVICE: 16:13 [place] daylight savings time. PREOPERATIVE DIAGNOSIS: Intrauterine at 39 weeks and 4 days with term induction of labor. POSTOPERATIVE DIAGNOSIS: Intrauterine at 39 weeks and 4 days with term induction of labor. PROCEDURE PERFORMED: Spontaneous vaginal delivery over intact perineum. FINDINGS: Viable female , weighing 3970 g or 8 pounds 12 ounces, Apgars 8 and 9. QUANTITATIVE BLOOD LOSS: 50 mL. COMPLICATIONS: None. PROCEDURE IN DETAIL: The patient presented to [facility] where she was admitted to the labor and delivery service. The patient underwent a normal and uneventful labor with normal cervical dilatation until she was found to be completely dilated. She was then allowed to push and was able to bring the baby down and delivered the baby in a vertex presentation without difficulties. Once the head delivered in occiput anterior position, the shoulders followed spontaneously along with the rest of the baby's body. Once out the baby's mouth and nose were bulb suctioned. The cord was clamped and cut and baby was handed to waiting attendants. Cord blood was collected. Gentle fundal massage was performed and the placenta delivered intact without problems. Hemostasis was assured. Quantitative blood loss was calculated. Inspection of the cervix, vaginal vault, and perineum did not reveal any lacerations needing suturing. Once again, hemostasis was within normal limits and the patient was allowed to recover in the labor and delivery room. Baby went to nursery. Job ID: [id number]
== END 2019-09-04 19:05 | disposition home or self-care (01) | DRG 807 ==
LOC: L&D 10:02 → 3SW 18:40
PROVIDERS: ADMIT Obstetrics & Gynecology; ATTEND Obstetrics & Gynecology
PROC: 10E0XZZ Delivery of Products of Conception, External Approach (ICD-10-PCS; principal; 2019-09-03)
PROC: 3E033VJ Introduction of Other Hormone into Peripheral Vein, Percutaneous Approach (ICD-10-PCS; 2019-09-03)
DX: O80 Encounter for full-term uncomplicated delivery (principal); Z37.0 Single live birth; Z3A.39 39 weeks gestation of pregnancy
CPT/HCPCS: 36415; 85027; 86780; 86850; 86900; 86901; 87340; J2590

== ENCOUNTER 2021-01-17 11:36 | Emergency (ER) | payer SELFPAY ==
[2021-01-17 12:23] LABS: #Eosinphils 0.1 thou/uL (0.0-0.7); #Lymphocytes 2.4 thou/uL (1.20-3.40); #Monocytes 0.4 thou/uL (0.11-0.59); #Neutrophils 4.2 thou/uL (1.40-6.50); %Basophils 0.3 % (0.0-1.0); %Lymphocytes 34.1 % (21.0-51.0); %Neutrophils 59.7 % (42.0-75.0); Hemoglobin 12.6 g/dL (12.0-16.0); Mean Corpuscular HGB CONC 35.1 g/dL (32.0-36.0); Mean Corpuscular Hemoglobin 31.6 pg (27.0-31.0); Mean Corpuscular Volume 89.9 fL (78.0-98.0); Mean Platelet Volume 8.5 fL (7.4-10.4); Platelet Count 236 thou/uL (130-400); RBC Distribution Width 11.8 % (11.5-14.5)
[2021-01-17 12:48] LABS: ALT (SGPT) 10 U/L (8-55); AST (SGOT) 10 U/L (5-34); Albumin 3.9 g/dL (3.5-5.0); Alkaline Phosphatase 53 U/L (40-110); Anion Gap 12 mmol/L (10-20); BUN (Urea Nitrogen) 8 mg/dL (7.0-18.7); Bilirubin, Total 0.3 mg/dL (0.2-1.2); Calc. Creatinine Clearance 0 mL/min (70-130); Carbon Dioxide 21 mmol/L (22-29); Chloride 106 mmol/L (98-107); Glucose 92 mg/dL (70-105); Lipase 23 U/L (8-78); Potassium 3.6 mmol/L (3.5-5.1); Protein, Total 6.9 g/dL (6.0-8.3); Sodium 135 mmol/L (136-145)
== END 2021-01-17 13:30 | disposition home or self-care (01) ==
LOC: ERS 11:36
DX: O21.0 Mild hyperemesis gravidarum (principal); Z3A.19 19 weeks gestation of pregnancy; Z79.899 Other long term (current) drug therapy
CPT/HCPCS: 36415; 80053; 83690; 85025; 99284

== ENCOUNTER 2022-12-14 09:12 | Outpatient (CLI) | payer OTHER | END 2022-12-14 09:13 | disposition home or self-care (01) | LOC: RAD 09:12 | PROVIDERS: ATTEND Nurse Practitioner Family | DX: M79.641 Pain in right hand (principal) ==

== ENCOUNTER 2023-04-13 20:57 | Emergency (ER) | payer MEDICAID, MEDICARE, OTHER ==
[2023-04-13] MEDS ORDERED: Ondansetron PF 4 MG/2 ML Vial ONE (21:38)
[2023-04-13 21:53] LABS: #Eosinphils 0.1 thou/uL (0.0-0.7); #Monocytes 0.5 thou/uL (0.11-0.59); #Neutrophils 5.5 thou/uL (1.40-6.50); %Basophils 0.3 % (0.0-1.0); %Eosinophils 0.9 % (0.0-10.0); %Lymphocytes 29.5 % (21.0-51.0); Hematocrit 36.3 % (36.0-47.0); Hemoglobin 12.6 g/dL (12.0-16.0); Mean Corpuscular HGB CONC 34.7 g/dL (32.0-36.0); Mean Corpuscular Hemoglobin 30.1 pg (27.0-31.0); Mean Corpuscular Volume 86.6 fl (78.0-98.0); Mean Platelet Volume 10.9 fL (7.4-10.4); Platelet Count 247 10x3/uL (130-400); RBC Distribution Width 12.6 % (11.5-14.5); Red Blood Cell (RBC) Count 4.19 mill/uL (4.20-5.40); White Blood Cell (WBC) Count 8.8 10x3/uL (4.8-10.8)
[2023-04-13 22:21] LABS: ALT (SGPT) 15 U/L (8-55); AST (SGOT) 19 U/L (5-34); Albumin 4.2 g/dL (3.5-5.0); Alkaline Phosphatase 80 U/L (40-110); Anion Gap 15 mmol/L (10-20); BUN (Urea Nitrogen) 7 mg/dL (7.0-18.7); Bilirubin, Total 0.2 mg/dL (0.2-1.2); CK (CPK) 37 U/L (29-168); Calc. Creatinine Clearance 0 mL/min (70-130); Calcium 9.2 mg/dL (7.8-10.44); Carbon Dioxide 18 mmol/L (22-29); Chloride 106 mmol/L (98-107); Estimated GFR 125; Globulin 2.9 g/dL (2.4-3.5); Glucose 92 mg/dL (70-105); Lipase 22 U/L (8-78); Potassium 3.6 mmol/L (3.5-5.1); Protein, Total 7.1 g/dL (6.0-8.3); Sodium 135 mmol/L (136-145)
[2023-04-13 23:23] LABS: Bacteria/HPF 4+ HPF (None Seen); Bilirubin Negative (Negative); Blood, Urine Negative (Negative); CAUTI Indications for Culture Pregnancy; Clarity Turbid (Clear); Glucose, Urine (Dipstick) Normal (Negative); Ketone, Urine 60 mg/dL (Negative); Leukocyte 250 Leu/uL (Negative); Nitrite Negative (Negative); Protein, Urine (Dipstick) 30 mg/dL (Neg-Trace); RBC/HPF 0-3 HPF (0-3); Specific Gravity, Urine 1.029 (1.002-1.036); Urobilinogen Normal mg/dL (Less than 2)
[2023-04-13 23:24] LABS: Urine Culture Reflex Yes Yes
== END 2023-04-13 23:28 | disposition home or self-care (01) ==
LOC: ERS 20:57
DX: O21.9 Vomiting of pregnancy, unspecified (principal); O30.001 Twin pregnancy, unspecified number of placenta and unspecified number of amniotic sacs, first trimester; Z3A.10 10 weeks gestation of pregnancy
CPT/HCPCS: 36415; 76856; 80053; 81001; 82550; 83690; 84702; 85025; 87086; 93976; 96361; 96374; J2405

== ENCOUNTER 2025-03-18 02:10 | Emergency (ER) | payer MEDICAID, OTHER ==
[2025-03-18 04:13] LABS: #Basophils Less than 0.03 10x3/uL (0.0-0.2); #Eosinophils 0.07 10x3/uL (0.0-0.7); #Monocytes 0.35 10x3/uL (0.11-0.59); #Neutrophils 3.75 10x3/uL (1.40-6.50); %Basophils 0.3 % (0.0-1.0); %Eosinophils 0.9 % (0.0-10.0); %Lymphocytes 43.2 % (21.0-51.0); %Monocytes 4.7 % (0.0-10.0); %Neutrophils 50.8 % (42.0-75.0); Hematocrit 39.5 % (36.0-47.0); Hemoglobin 13.1 g/dL (12.0-16.0); Mean Corpuscular Hemoglobin 29.5 pg (27.0-31.0); Mean Corpuscular Volume 89.0 fL (78.0-98.0); Platelet Count 263 10x3/uL (130-400); Red Blood Cell (RBC) Count 4.44 mill/uL (4.20-5.40); White Blood Cell (WBC) Count 7.39 10x3/uL (4.8-10.8)
[2025-03-18 04:27] LABS: ALT (SGPT) 20 U/L (Less than 34); AST (SGOT) 28 U/L (11-34); Albumin 4.4 g/dL (3.1-4.5); Alkaline Phosphatase 52 U/L (40-110); Anion Gap 15 mmol/L (10-20); BUN (Urea Nitrogen) 15 mg/dL (7.0-18.7); Bilirubin, Total 0.2 mg/dL (0.3-1.2); Calc. Creatinine Clearance 0 mL/min (70-130); Calcium 9.1 mg/dL (7.8-10.44); Carbon Dioxide 23 mmol/L (22-29); Chloride 106 mmol/L (98-107); Globulin 3.1 g/dL (2.4-3.5); Glucose 102 mg/dL (70-105); Potassium 4.0 mmol/L (3.5-5.1); Sodium 140 mmol/L (136-145)
[2025-03-18] MEDS ORDERED: Acetaminophen 500 MG TAB ONE (05:05)
[2025-03-18 05:43] LABS: Pregnancy Test - Urine (BHCG) Negative (Negative); Pregu Control Background? CLEAR/WHITE (CLR/WHITE); Pregu Control Bar Appear? YES (CONTROL BAR)
== END 2025-03-18 06:03 | disposition home or self-care (01) ==
LOC: ERS 02:10
DX: S29.019A Strain of muscle and tendon of unspecified wall of thorax, initial encounter (principal); X50.3XXA Overexertion from repetitive movements, initial encounter
CPT/HCPCS: 71045; 80053; 81025; 84484; 85025; 93005